=== PATIENT | female | born 1955 | race Caucasian/White ===

== ENCOUNTER 2022-01-15 10:53 | Inpatient (IN) | payer MEDICARE, OTHER ==
[2022-01-15] MEDS ORDERED: Ketorolac Tromethamine 30 MG/ML VIAL ONE (11:09)
[2022-01-15] MEDS ORDERED: Morphine 4 MG/ML VIAL ONE (11:09)
[2022-01-15] MEDS ORDERED: PROPOFOL 20 ML ONE (11:42)
[2022-01-15] MEDS ORDERED: hydrALAZINE 20 MG/ML VIAL SLOW IVP PRN (12:39)
[2022-01-15] MEDS ORDERED: TETANUS, DIPHTHERIA TOX,ADULT (TDVAX) 0.5 ML VIAL IM ONE (12:39)
[2022-01-15] MEDS ORDERED: Morphine 4 MG/ML VIAL SLOW IVP PRN (12:47)
[2022-01-15] MEDS ORDERED: traMADol HCl 50 MG TAB PO PRN (14:23)
[2022-01-15] MEDS ORDERED: Cyclobenzaprine 10 MG TAB PO PRN (14:23)
[2022-01-15 15:10] LABS: #Basophils 0.1 thou/uL (0.0-0.2); #Lymphocytes 1.9 thou/uL (1.20-3.40); #Monocytes 0.7 thou/uL (0.11-0.59); #Neutrophils 8.6 thou/uL (1.40-6.50); %Basophils 0.6 % (0.0-1.0); %Eosinophils 0.4 % (0.0-10.0); %Lymphocytes 16.6 % (21.0-51.0); %Monocytes 6.6 % (0.0-10.0); %Neutrophils 75.9 % (42.0-75.0); Hemoglobin 13.8 g/dL (12.0-16.0); Mean Corpuscular Hemoglobin 33.2 pg (27.0-31.0); Mean Corpuscular Volume 97.4 fl (78.0-98.0); Mean Platelet Volume 7.4 fL (7.4-10.4); Platelet Count 307 10x3/uL (130-400); RBC Distribution Width 11.8 % (11.5-14.5); Red Blood Cell (RBC) Count 4.16 mill/uL (4.20-5.40); White Blood Cell (WBC) Count 11.3 10x3/uL (4.8-10.8)
[2022-01-15] MEDS: Sodium Chloride 0.9% 1,000 ML IV SCH ×2 (15:18→20:32)
[2022-01-15 15:26] LABS: Anion Gap 11 mmol/L (10-20); BUN (Urea Nitrogen) 14 mg/dL (9.8-20.1); Calc. Creatinine Clearance 0 mL/min (70-130); Calcium 8.6 mg/dL (7.8-10.44); Carbon Dioxide 26 mmol/L (23-31); Chloride 108 mmol/L (98-107); Estimated GFR 97; Glucose 91 mg/dL (80-115); Magnesium 2.1 mg/dL (1.6-2.6); Phosphorus 3.7 mg/dL (2.3-4.7); Potassium 3.6 mmol/L (3.5-5.1); Sodium 141 mmol/L (136-145)
[2022-01-15 15:31] LABS: Prothrombin Time 13.9 sec (12.0-14.7)
[2022-01-15] MEDS ORDERED: CEFAZOLIN 2 GM in Sodium Chloride 0.9% 100 ML IVPB SCH (17:00)
[2022-01-15 17:47] VITALS: BMI 24.7
[2022-01-15] MEDS ORDERED: Acetaminophen 325 MG TAB PO SCH (18:00)
[2022-01-15] MEDS: traMADol HCl 50 MG TAB PO SCH ×2 (18:36→23:44)
[2022-01-15] MEDS ORDERED: Potassium Chloride 20 MEQ TAB PO SCH (19:00)
[2022-01-15] MEDS: Famotidine/PF 20 mg/2ml Vial SLOW IVP SCH (20:28)
[2022-01-15] MEDS: Senokot S 8.6-50 MG TAB PO SCH (20:28)
[2022-01-15] MEDS: Acetaminophen 500 MG TAB PO SCH (23:43)
[2022-01-16 00:36] LABS: SARS-CoV-2 NAA Rapid Test Not Detected (NotDetected)
[2022-01-16 05:37] LABS: #Basophils 0.1 thou/uL (0.0-0.2); #Eosinphils 0.2 thou/uL (0.0-0.7); #Lymphocytes 2.7 thou/uL (1.20-3.40); #Monocytes 0.7 thou/uL (0.11-0.59); #Neutrophils 3.7 thou/uL (1.40-6.50); %Basophils 0.9 % (0.0-1.0); %Eosinophils 2.9 % (0.0-10.0); %Lymphocytes 36.6 % (21.0-51.0); %Monocytes 9.9 % (0.0-10.0); %Neutrophils 49.8 % (42.0-75.0); Hemoglobin 11.9 g/dL (12.0-16.0); Mean Corpuscular HGB CONC 31.3 g/dL (32.0-36.0); Mean Corpuscular Hemoglobin 31.2 pg (27.0-31.0); Mean Corpuscular Volume 99.8 fl (78.0-98.0); Mean Platelet Volume 7.6 fL (7.4-10.4); Platelet Count 277 10x3/uL (130-400); RBC Distribution Width 11.9 % (11.5-14.5); Red Blood Cell (RBC) Count 3.81 mill/uL (4.20-5.40); White Blood Cell (WBC) Count 7.5 10x3/uL (4.8-10.8)
[2022-01-16 05:56] LABS: Phosphorus 3.8 mg/dL (2.3-4.7)
[2022-01-16 05:57] LABS: Anion Gap 8 mmol/L (10-20); BUN (Urea Nitrogen) 12 mg/dL (9.8-20.1); Calc. Creatinine Clearance 77 mL/min (70-130); Calcium 8.1 mg/dL (7.8-10.44); Carbon Dioxide 27 mmol/L (23-31); Chloride 109 mmol/L (98-107); Estimated GFR 92; Glucose 91 mg/dL (80-115); Magnesium 2.4 mg/dL (1.6-2.6); Potassium 4.2 mmol/L (3.5-5.1); Sodium 140 mmol/L (136-145)
[2022-01-16] MEDS: Sodium Chloride 0.9% 1,000 ML IV SCH ×3 (05:58→21:45)
[2022-01-16] MEDS: traMADol HCl 50 MG TAB PO SCH ×4 (05:59→23:41)
[2022-01-16] MEDS: Acetaminophen 500 MG TAB PO SCH ×2 (05:59→10:42)
[2022-01-16] MEDS: Ondansetron PF 4 MG/2 ML Vial IVP PRN ×2 (06:05→10:43)
[2022-01-16] MEDS: Famotidine/PF 20 mg/2ml Vial SLOW IVP SCH ×2 (08:14→20:57)
[2022-01-16] MEDS: Senokot S 8.6-50 MG TAB PO SCH ×2 (08:15→20:57)
[2022-01-16] MEDS: Polyethylene Glycol 3350 17 GM Packet PO SCH (08:15)
[2022-01-16 08:30] LABS: #Basophils 0.1 thou/uL (0.0-0.2); #Eosinphils 0.1 thou/uL (0.0-0.7); #Lymphocytes 1.5 thou/uL (1.20-3.40); #Monocytes 0.6 thou/uL (0.11-0.59); #Neutrophils 5.6 thou/uL (1.40-6.50); %Basophils 0.8 % (0.0-1.0); %Eosinophils 1.5 % (0.0-10.0); %Lymphocytes 18.8 % (21.0-51.0); %Neutrophils 70.9 % (42.0-75.0); Hemoglobin 12.4 g/dL (12.0-16.0); Mean Corpuscular HGB CONC 33.2 g/dL (32.0-36.0); Mean Corpuscular Volume 99.5 fl (78.0-98.0); Mean Platelet Volume 7.1 fL (7.4-10.4); Platelet Count 262 10x3/uL (130-400); RBC Distribution Width 11.8 % (11.5-14.5); Red Blood Cell (RBC) Count 3.76 mill/uL (4.20-5.40); White Blood Cell (WBC) Count 7.9 10x3/uL (4.8-10.8)
[2022-01-16] MEDS ORDERED: CEFAZOLIN 2 GM VIAL ONE (11:32)
[2022-01-16] MEDS ORDERED: HYDROmorphone 0.5 MG/0.5 ML SYRINGE ONE (11:32)
[2022-01-16] MEDS ORDERED: Sodium Chloride 0.9% 100 ML ONE (11:32)
[2022-01-16] MEDS ORDERED: Midazolam HCl 2 mg/2 ml Vial ONE (11:46)
[2022-01-16] MEDS ORDERED: Bupivacaine PF 0.5% 30 ML VIAL ONE (11:47)
[2022-01-16] MEDS ORDERED: Ropivacaine 0.2% HCl/PF 20 ML ONE (11:47)
[2022-01-16] MEDS ORDERED: Lidocaine 1% PF 5 ML VIAL ONE (11:47)
[2022-01-16] MEDS ORDERED: Rocuronium Bromide 10 MG/ML (10ML VIAL) ONE (12:37)
[2022-01-16] MEDS ORDERED: Dexamethasone 20 MG/5 ML VIAL ONE (12:37)
[2022-01-16] MEDS ORDERED: Ketorolac Tromethamine 30 MG/ML VIAL ONE (12:37)
[2022-01-16] MEDS ORDERED: PROPOFOL 200 MG/20 ML VIAL ONE (12:37)
[2022-01-16] MEDS ORDERED: Ondansetron PF 4 MG/2 ML Vial ONE (12:37)
[2022-01-16] MEDS ORDERED: FENTANYL 50 MCG/ML 1 ML VIAL SLOW IVP PRN (12:58)
[2022-01-16] MEDS ORDERED: Ondansetron PF 4 MG/2 ML Vial IVP PRN (13:00)
[2022-01-16] MEDS ORDERED: HYDROcodone/Acetaminophen 10/325 mg Tablet PO PRN ×2 (13:00)
[2022-01-16] MEDS ORDERED: traMADol HCl 50 MG TAB PO PRN ×2 (13:00)
[2022-01-16] MEDS ORDERED: Promethazine HCl 25 MG/ML VIAL IM PRN (13:00)
[2022-01-16] MEDS ORDERED: Ketorolac Tromethamine 30 MG/ML VIAL IVP PRN (13:00)
[2022-01-16] MEDS ORDERED: Ropivacaine 0.2% 550 ML 550 ML NERVE BLCK SCH (13:00)
[2022-01-16] MEDS ORDERED: Zolpidem Tartrate 5 MG TAB PO PRN (13:00)
[2022-01-16] MEDS ORDERED: SUGAMMADEX SODIUM 200 MG/2 ML VIAL ONE (13:53)
[2022-01-16] MEDS ORDERED: FENTANYL 50 MCG/ML 1 ML VIAL ONE (14:49)
[2022-01-16] MEDS ORDERED: Promethazine HCl 25 MG/ML VIAL IM/IV PRN (15:00)
[2022-01-16] MEDS ORDERED: Ondansetron HCl/PF 4 MG/2 ML Vial IVP PRN (15:00)
[2022-01-16] MEDS: Acetaminophen 325 MG TAB PO SCH ×2 (17:43→23:41)
[2022-01-16] MEDS: CEFAZOLIN 2 GM in Sodium Chloride 0.9% 100 ML IVPB SCH (20:56)
[2022-01-17] MEDS: Acetaminophen 325 MG TAB PO SCH ×2 (05:39→11:53)
[2022-01-17] MEDS: traMADol HCl 50 MG TAB PO SCH ×2 (05:39→11:54)
[2022-01-17] MEDS: CEFAZOLIN 2 GM in Sodium Chloride 0.9% 100 ML IVPB SCH (05:40)
[2022-01-17] MEDS: Sodium Chloride 0.9% 1,000 ML IV SCH (05:46)
[2022-01-17 06:01] LABS: #Lymphocytes 1.5 thou/uL (1.20-3.40); #Monocytes 0.7 thou/uL (0.11-0.59); #Neutrophils 6.7 thou/uL (1.40-6.50); %Basophils 0.3 % (0.0-1.0); %Eosinophils 0.2 % (0.0-10.0); %Lymphocytes 16.8 % (21.0-51.0); %Monocytes 7.6 % (0.0-10.0); %Neutrophils 75.2 % (42.0-75.0); Hemoglobin 11.7 g/dL (12.0-16.0); Mean Corpuscular HGB CONC 32.1 g/dL (32.0-36.0); Mean Corpuscular Hemoglobin 32.4 pg (27.0-31.0); Platelet Count 248 10x3/uL (130-400); RBC Distribution Width 11.9 % (11.5-14.5); White Blood Cell (WBC) Count 8.9 10x3/uL (4.8-10.8)
[2022-01-17] MEDS: Famotidine/PF 20 mg/2ml Vial SLOW IVP SCH (09:25)
[2022-01-17] MEDS: Polyethylene Glycol 3350 17 GM Packet PO SCH (10:18)
[2022-01-17] MEDS: Senokot S 8.6-50 MG TAB PO SCH ×2 (10:18→11:55)
[2022-01-17 11:51] VITALS: BP 124/67; TEMP 99.6
== END 2022-01-17 15:20 | disposition home or self-care (01) | DRG 494 ==
LOC: ERS 10:53 → SURG A 12:39
PROVIDERS: ADMIT Surgery; ATTEND Surgery
PROC: 0QSH04Z Reposition Left Tibia with Internal Fixation Device, Open Approach (ICD-10-PCS; principal; 2022-01-16)
DX: S82.852A Displaced trimalleolar fracture of left lower leg, initial encounter for closed fracture (principal); W18.30XA Fall on same level, unspecified, initial encounter; Z20.822 Contact with and (suspected) exposure to COVID-19; Z88.8 Allergy status to other drugs, medicaments and biological substances; Z79.52 Long term (current) use of systemic steroids
CPT/HCPCS: 27818; 36415; 80048; 83735; 84100; 85025; 85610; 85730; 86850; 86900; 86901; 94760; 96374; 96375; A4306; C1713; G0390; J1100; J1170; J1885; J2250; J2270; J2405; J2704; J2795; J3010; J3490; J7050; S0020; S0028; U0002